=== PATIENT | female | born 1960 | race Caucasian/White ===

== ENCOUNTER → 2023-08-01 19:12 | Outpatient (REF) | payer MEDICARE, SELFPAY | LOC: WDC 19:12 | PROVIDERS: ATTENDING PHYSICIAN Family Medicine | DX: Z12.31 Encounter for screening mammogram for malignant neoplasm of breast (principal) | CPT/HCPCS: 77063; 77067 ==

== ENCOUNTER → 2023-12-12 10:45 | Outpatient (REF) | payer MEDICARE, SELFPAY | LOC: HWRAD 10:45 | PROVIDERS: ATTENDING PHYSICIAN Family Medicine | DX: J34.1 Cyst and mucocele of nose and nasal sinus (principal) | CPT/HCPCS: 70486 ==

== ENCOUNTER → 2024-02-22 17:45 | Outpatient (REF) | payer MEDICARE, SELFPAY | LOC: MRI 3T 17:45 | PROVIDERS: ATTENDING PHYSICIAN Internal Medicine Gastroenterology; FAMILY PHYSICIAN Family Medicine | DX: K86.2 Cyst of pancreas (principal) | CPT/HCPCS: 74183; A9575 ==

== ENCOUNTER 2024-02-26 06:17 | Day surgery (SDC) | payer MEDICARE, SELFPAY ==
[2024-02-26 07:55] LABS: Glucose - Point of Care 151 mg/dl (70-99)
== END 2024-02-26 09:56 | disposition home or self-care (01) ==
LOC: GI 06:17
PROVIDERS: ATTENDING PHYSICIAN Internal Medicine Gastroenterology
DX: Z12.11 Encounter for screening for malignant neoplasm of colon (principal); K64.8 Other hemorrhoids; K57.30 Diverticulosis of large intestine without perforation or abscess without bleeding; K22.89 Other specified disease of esophagus; K29.50 Unspecified chronic gastritis without bleeding; K22.70 Barrett's esophagus without dysplasia; K31.7 Polyp of stomach and duodenum; Z86.0100 Personal history of colon polyps, unspecified; Z80.0 Family history of malignant neoplasm of digestive organs
CPT/HCPCS: 43239; G0105; 88305; 82962; 88342

== ENCOUNTER 2024-06-25 06:13 | Day surgery (SDC) | payer MEDICARE, SELFPAY ==
[2024-06-25 10:44] VITALS: BMI 31.5
[2024-06-25 10:45] VITALS: BMI 31.5
[2024-06-25 10:50] VITALS: BP 142/76
[2024-06-25 11:00] LABS: Glucose - Point of Care 117 mg/dl (70-99)
[2024-06-25 13:03] VITALS: BP 130/84
[2024-06-25 13:15] VITALS: BP 141/80
[2024-06-25 13:18] LABS: Glucose - Point of Care 101 mg/dl (70-99)
[2024-06-25 13:30] VITALS: BP 125/78
== END 2024-06-25 13:53 | disposition home or self-care (01) ==
LOC: GI 06:13
PROVIDERS: ATTENDING PHYSICIAN Internal Medicine Gastroenterology
DX: K31.7 Polyp of stomach and duodenum (principal); K86.2 Cyst of pancreas; Z79.01 Long term (current) use of anticoagulants
CPT/HCPCS: 43259; 88305; 82962

== ENCOUNTER → 2024-07-16 11:26 | Outpatient (REF) | payer MEDICARE, SELFPAY | LOC: PAVMRI 11:26 | PROVIDERS: ATTENDING PHYSICIAN Family Medicine | DX: D35.2 Benign neoplasm of pituitary gland (principal); D32.9 Benign neoplasm of meninges, unspecified; R41.3 Other amnesia; R41.89 Other symptoms and signs involving cognitive functions and awareness | CPT/HCPCS: 70553; A9575 ==

== ENCOUNTER → 2024-10-08 09:01 | Outpatient (REF) | payer MEDICARE, SELFPAY | LOC: HWRCS 09:01 | PROVIDERS: ATTENDING PHYSICIAN Nurse Practitioner Adult Health; FAMILY PHYSICIAN Family Medicine | DX: I63.49 Cerebral infarction due to embolism of other cerebral artery (principal) | CPT/HCPCS: 93306 ==

== ENCOUNTER → 2024-11-07 15:02 | Outpatient (REF) | payer MEDICARE, SELFPAY | LOC: WDC 15:02 | PROVIDERS: ATTENDING PHYSICIAN Family Medicine | DX: Z12.31 Encounter for screening mammogram for malignant neoplasm of breast (principal) | CPT/HCPCS: 77063; 77067 ==

== ENCOUNTER → 2024-12-10 16:01 | Outpatient (REF) | payer MEDICARE, SELFPAY | LOC: MRI 16:01 | PROVIDERS: ATTENDING PHYSICIAN Nurse Practitioner Adult Health; FAMILY PHYSICIAN Family Medicine | DX: I63.49 Cerebral infarction due to embolism of other cerebral artery (principal) | CPT/HCPCS: 70544; 70549; A9585 ==